=== PATIENT | female | born 1990 | race Caucasian/White ===

== ENCOUNTER → 2018-09-20 | Outpatient (CLI) | payer OTHER ==
--- NOTE | 2018-09-20 17:47 | KCIC ---
EXAM: PA, oblique and lateral views of the left middle finger. DATE: 09/20/2018 12:00 AM INDICATION: Contusion, left third digit pain. COMPARISON: No Prior FINDINGS/ IMPRESSION: 3 views of the left third digit demonstrate mild soft tissue swelling with hyperextension centered at the PIP joint. No definite associated fracture seen. This may be seen with associated soft tissue/tendinous injury. Electronically signed by: Praveen Flores MD (09/20/2018 5:43 PM) [facility]
== END | disposition home or self-care (01) ==
LOC: KCIC 13:24
PROVIDERS: ATTEND Family Medicine
DX: S60.032A Contusion of left middle finger without damage to nail, initial encounter (principal); R22.32 Localized swelling, mass and lump, left upper limb; X58.XXXA Exposure to other specified factors, initial encounter; Y93.89 Activity, other specified; Y92.89 Other specified places as the place of occurrence of the external cause; Y99.8 Other external cause status
CPT/HCPCS: 73140